=== PATIENT | male | born 1960 | race African-American/Black ===

== ENCOUNTER 2018-02-28 10:46 | Emergency (ER) | payer MEDICARE, OTHER ==
[~2018-02-28] VITALS: Ht 175.3 cm; Wt 86.4 kg
[~2018-02-28 10:46] MED LIST: LISI1TAB11 PO; OMEP20CA10 PO
[2018-02-28 11:03] LABS: GLUCOSE,POINT OF CARE 111 MG/DL (70-110)
[2018-02-28 11:13] VITALS: BP 125/88
[2018-02-28] MEDS ORDERED: KETOROLAC TROMETHAMINE 60 MG/2 ML VIAL IM ONE (11:30)
== END 2018-02-28 12:02 | disposition home or self-care (01) ==
LOC: EMS 10:46
DX: S46.911A Strain of unspecified muscle, fascia and tendon at shoulder and upper arm level, right arm, initial encounter (principal); I10 Essential (primary) hypertension; E11.9 Type 2 diabetes mellitus without complications; F17.210 Nicotine dependence, cigarettes, uncomplicated; X50.9XXA Other and unspecified overexertion or strenuous movements or postures, initial encounter; Y93.89 Activity, other specified; Y92.89 Other specified places as the place of occurrence of the external cause; Y99.8 Other external cause status
CPT/HCPCS: 82962; 96372; 99283; J1885

== ENCOUNTER 2018-07-12 06:03 | Emergency (ER) | payer MEDICARE ==
[~2018-07-12] VITALS: Ht 180.3 cm; Wt 81.8 kg
[2018-07-12] MEDS ORDERED: METF-960 PO (06:22)
[2018-07-12 06:24] LABS: GLUCOSE,POINT OF CARE 138 MG/DL (70-110)
[2018-07-12 07:15] LABS: BASOPHILS % (AUTO) 0.7 % (0.0-2.0); EOSINOPHILS % (AUTO) 0.5 % (1.0-6.0); HEMATOCRIT 46.5 % (41-53); HEMOGLOBIN 15.2 g/dL (13.5-17.5); LYMPHOCYTES # (AUTO) 1.1 K/uL (1.0-4.8); LYMPHOCYTES % (AUTO) 11.8 % (22.0-44.0); MEAN CORPUSCULAR HEMOGLOBIN 28.9 pg (26.0-34.0); MEAN CORPUSCULAR HGB CONC 32.7 G/dL (31.0-37.0); MEAN CORPUSCULAR VOLUME 88 fL (80-100); MONOCYTES # (AUTO) 0.5 K/uL (0.1-1.0); NEUTROPHILS # (AUTO) 7.8 K/uL (1.8-7.7); PLATELET COUNT (AUTO) 232 K/uL (150-450); RED BLOOD CELL COUNT(AUTO) 5.28 MIL/uL (4.50-5.90); RED CELL DISTRIBUTION WIDTH 14.6 % (11.5-14.5)
[2018-07-12] MEDS ORDERED: SODIUM CHLORIDE 0.9% 1,000 ML IV ONE (07:15)
[2018-07-12] MEDS ORDERED: ONDANSETRON HCL 4 MG/2 ML VIAL IVP ONE (07:15)
[2018-07-12] MEDS ORDERED: PANTOPRAZOLE SODIUM 40 MG/VIAL IVP ONE (07:15)
[2018-07-12 07:26] LABS: ANION GAP 9 mmol/L (8-16); CARBON DIOXIDE 32 mmol/L (22-29); CHLORIDE 101 mmol/L (98-107); CREATININE 0.96 mg/dL (0.60-1.30); GLOMERULAR FILTR. RATE CALC > 60 mL/min (>60); GLUCOSE,RANDOM 140 mg/dL (70-110); POTASSIUM 3.4 mmol/L (3.5-5.1); SODIUM SERUM 142 mmol/L (136-145); UREA NITROGEN, BLOOD 13 mg/dL (7-18)
[2018-07-12 07:51] LABS: ALANINE AMINOTRANSFERASE 50 U/L (12-78); ALBUMIN 3.4 g/dL (3.4-5.0); ALKALINE PHOSPHATASE 60 U/L (46-116); APPEARANCE,URINE TURBID (CLEAR); ASPARTATE AMINOTRANSFERASE 46 U/L (15-37); BILIRUBIN,TOTAL 0.4 mg/dL (0.1-1.0); BILIRUBIN,URINE NEGATIVE (NEGATIVE); CREATINE KINASE, TOTAL ONLY 560 U/L (39-308); GLUCOSE, URINE (UA) NEGATIVE (NEGATIVE); KETONES,URINE NEGATIVE (NEGATIVE); LEUKOCYTE ESTERASE ,URINE NEGATIVE (NEGATIVE); LIPASE 79 U/L (73-393); NITRATE,URINE NEGATIVE (NEGATIVE); OCCULT BLOOD,URINE NEGATIVE (NEGATIVE); PH,URINE 7.5 (5.0-8.0); PROTEIN,URINE NEGATIVE (NEGATIVE); TOTAL PROTEIN, SERUM 7.1 g/dL (6.4-8.2); UROBILINOGEN,URINE 0.2 mg/dL (<=1.0)
[2018-07-12 09:24] VITALS: BP 146/82
== END 2018-07-12 09:26 | disposition home or self-care (01) ==
LOC: EMS 06:04
DX: R10.84 Generalized abdominal pain (principal); R11.2 Nausea with vomiting, unspecified; I10 Essential (primary) hypertension; E11.9 Type 2 diabetes mellitus without complications; F17.210 Nicotine dependence, cigarettes, uncomplicated; F12.90 Cannabis use, unspecified, uncomplicated; Z79.84 Long term (current) use of oral hypoglycemic drugs
CPT/HCPCS: 36415; 76700; 80053; 81003; 82550; 82962; 83690; 84484; 85025; 93005; 96361; 96374; 96375; 99285; C9113; J2405; J7030

== ENCOUNTER 2023-10-26 15:24 | Emergency (ER) | payer MEDICARE ==
[~2023-10-26] VITALS: Ht 180.3 cm; Wt 68.1 kg
[~2023-10-26 15:24] MED LIST changes: +METF-1211 PO; -OMEP20CA10 PO; +OMEP20CA12 PO
[2023-10-26 15:42] VITALS: TEMP 98.8
[2023-10-26 15:56] LABS: GLUCOMETER DEV NAME(LOC) ERT.5; GLUCOSE,POINT OF CARE 124 MG/DL (70-110)
[2023-10-26 15:57] LABS: COVID AG,FIA SOURCE NASAL SWAB
[2023-10-26 16:02] LABS: APPEARANCE,URINE CLEAR (CLEAR); BILIRUBIN,URINE NEGATIVE (NEGATIVE); COLOR,URINE LIGHT YELLOW (YELLOW); GLUCOSE, URINE (UA) NEGATIVE (NEGATIVE); KETONES,URINE NEGATIVE (NEGATIVE); LEUKOCYTE ESTERASE ,URINE NEGATIVE (NEGATIVE); NITRATE,URINE NEGATIVE (NEGATIVE); OCCULT BLOOD,URINE TRACE (NEGATIVE); PROTEIN,URINE NEGATIVE (NEGATIVE); SPECIFIC GRAVITIY, URINE 1.016 (1.003-1.030); UROBILINOGEN,URINE <=1.0 mg/dL (<=1.0)
[2023-10-26 16:10] LABS: BACTERIA,URINE None Seen /HPF (None Seen); SQUAMOUS EPITHELIAL CELL,UR Rare /LPF (None Seen); WBC,URINE 0-2 /HPF (0-5)
[2023-10-26 16:18] LABS: INFLUENZA TYPE A NEGATIVE FOR TYPE A (NEGATIVE); INFLUENZA TYPE B NEGATIVE FOR TYPE B (NEGATIVE)
[2023-10-26 16:37] LABS: SARS-COV2 (COVID) ANTIGEN,FIA Positive (Negative)
[2023-10-26] MEDS: IBUPROFEN 600 MG TABLET PO ONE (16:58)
[2023-10-26 17:19] VITALS: BP 137/85; PULSE 87; RESP 18
[2023-10-26 17:30] LABS: GLUCOMETER DEV NAME(LOC) ER.7; GLUCOSE,POINT OF CARE 110 MG/DL (70-110)
[2023-10-26] MEDS ORDERED: ONDA-104 PO (17:33)
== END 2023-10-26 17:57 | disposition home or self-care (01) ==
LOC: EMS 15:24
DX: U07.1 COVID-19 (principal); E11.9 Type 2 diabetes mellitus without complications; I10 Essential (primary) hypertension; F17.210 Nicotine dependence, cigarettes, uncomplicated; F12.90 Cannabis use, unspecified, uncomplicated; Z98.890 Other specified postprocedural states; Z20.822 Contact with and (suspected) exposure to COVID-19
CPT/HCPCS: 81001; 82962; 87804; 99283

== ENCOUNTER 2023-12-29 07:53 | Emergency (ER) | payer MEDICARE ==
[~2023-12-29] VITALS: Ht 177.8 cm; Wt 68.2 kg
[~2023-12-29 07:53] MED LIST changes: +ONDA-104 PO
[2023-12-29 08:01] VITALS: BP 116/57; PULSE 80; RESP 18; TEMP 98.5; O2SAT 100
[2023-12-29] MEDS ORDERED: AMLO10TA55 PO (08:01)
[2023-12-29] MEDS ORDERED: LOSA100T59 PO (08:01)
[2023-12-29] MEDS ORDERED: ATOR40TA71 PO (08:01)
[2023-12-29] MEDS: SODIUM CHLORIDE 0.9% 2,000 ML IV ONE (09:11)
[2023-12-29] MEDS: KETOROLAC TROMETHAMINE 30 MG/ML VIAL IVP ONE (09:11)
[2023-12-29] MEDS: ONDANSETRON HCL 4 MG/2 ML VIAL IVP ONE (09:11)
[2023-12-29 09:39] LABS: BASOPHILS % (AUTO) 0.7 % (0.0-2.0); EOSINOPHILS % (AUTO) 0.1 % (1.0-6.0); HEMATOCRIT 44.4 % (41-53); LYMPHOCYTES # (AUTO) 2.1 K/uL (1.0-4.8); LYMPHOCYTES % (AUTO) 28.3 % (22.0-44.0); MEAN CORPUSCULAR HEMOGLOBIN 31.3 pg (26.0-34.0); MEAN CORPUSCULAR HGB CONC 33.7 G/dL (31.0-37.0); MEAN CORPUSCULAR VOLUME 93 fL (80-100); MONOCYTES # (AUTO) 1.2 K/uL (0.1-1.0); MONOCYTES % (AUTO) 15.8 % (2.0-9.0); NEUTROPHILS # (AUTO) 4.1 K/uL (1.8-7.7); NEUTROPHILS % (AUTO) 55.1 % (40.0-70.0); PLATELET COUNT (AUTO) 198 K/uL (150-450); RED BLOOD CELL COUNT(AUTO) 4.78 MIL/uL (4.50-5.90); RED CELL DISTRIBUTION WIDTH 13.6 % (11.5-14.5); WHITE BLOOD COUNT (AUTO) 7.5 K/uL (4.5-11.0)
[2023-12-29 09:54] LABS: LACTIC ACID 1.4 mmol/L (0.4-2.0)
[2023-12-29 09:55] LABS: TROPONIN I-HIGH SENSITIVITY 9 ng/L (<76)
[2023-12-29 10:03] LABS: ALANINE AMINOTRANSFERASE 36 U/L (12-78); ALBUMIN 3.7 g/dL (3.4-5.0); ALKALINE PHOSPHATASE 75 U/L (46-116); ANION GAP 9 mmol/L (8-16); ASPARTATE AMINOTRANSFERASE 39 U/L (15-37); BILIRUBIN,TOTAL 0.9 mg/dL (0.1-1.0); CALCIUM, TOTAL 8.6 mg/dL (8.8-10.5); CARBON DIOXIDE 31 mmol/L (22-29); CHLORIDE 99 mmol/L (98-107); CREATININE 1.57 mg/dL (0.60-1.30); GLOMERULAR FILTR. RATE CALC 54 mL/min (>60); GLUCOSE,RANDOM 103 mg/dL (70-110); LIPASE 20 U/L (16-77); SODIUM SERUM 139 mmol/L (136-145); TOTAL PROTEIN, SERUM 7.3 g/dL (6.4-8.2); UREA NITROGEN, BLOOD 39 mg/dL (7-18)
[2023-12-29 10:07] LABS: POTASSIUM 2.7 mmol/L (3.5-5.1)
[2023-12-29] MEDS: SODIUM CHLORIDE 0.9% 1,000 ML IV ONE (10:28)
[2023-12-29] MEDS: OMEPRAZOLE 20 MG CAPSULE PO ONE (10:28)
[2023-12-29] MEDS: POTASSIUM CHLORIDE 20 MEQ ER TABLET PO ONE ×2 (10:28→10:55)
[2023-12-29] MEDS ORDERED: ACET-66 PO (11:12)
[2023-12-29] MEDS ORDERED: ONDA-104 PO (11:12)
[2023-12-29] MEDS ORDERED: OMEP20 PO (11:12)
== END 2023-12-29 11:56 | disposition home or self-care (01) ==
LOC: EMS 07:53
DX: K52.9 Noninfective gastroenteritis and colitis, unspecified (principal); E86.0 Dehydration; E87.6 Hypokalemia; E78.00 Pure hypercholesterolemia, unspecified; I10 Essential (primary) hypertension; F17.210 Nicotine dependence, cigarettes, uncomplicated; F12.90 Cannabis use, unspecified, uncomplicated; Z98.890 Other specified postprocedural states
CPT/HCPCS: 99284; 96374; 96361; 96375; 80048; 80076; 82962; 83605; 83690; 84484; 85025; 36415; 93005; J1885; J2405; J7030